=== PATIENT | male | born 1995 | race Caucasian/White ===

== ENCOUNTER 2020-09-19 12:32 | Emergency (ER) | payer OTHER, MEDICAID, SELFPAY ==
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
[2020-09-19 12:40] VITALS: BP 114/71; PULSE 79; RESP 18; TEMP 37.7; O2SAT 100
[2020-09-19 12:42] VITALS: TEMP 37.2
--- NOTE | 2020-09-19 12:44 | ECG_ITS ---
Measurements Intervals [place] Rate: 70 P: 60 IA: 136 QRS: 80 QRSD: 102 T: 64 QT: 369 QTc: 399 Interpretive Statements SINUS RHYTHM BORDERLINE T WAVE ABNORMALITY- ANTERIOR LEADS BORDERLINE ECG Electronically Signed On 09-19-2020 16:30:28 CDT by Marlon Warren D.O.
[2020-09-19 12:59] LABS: Glucose Point of Care 100 mg/dl (65-105)
[2020-09-19 13:00] VITALS: BP 112/64; PULSE 74
[2020-09-19 13:02] VITALS: BP 113/69; PULSE 85
[2020-09-19 13:04] VITALS: BP 118/61; PULSE 99
== END 2020-09-19 13:16 | disposition left against medical advice (07) ==
PROVIDERS: Emergency Provider Nurse Practitioner Family
DX: F41.9 Anxiety disorder, unspecified (principal); R94.31 Abnormal electrocardiogram [ECG] [EKG]
CPT/HCPCS: 82948; 93005; 99213; G0463

== ENCOUNTER 2020-10-13 18:20 | Emergency (ER) | payer OTHER, MEDICAID, SELFPAY ==
[2020-10-13 18:26] VITALS: BP 117/62; PULSE 92; RESP 18; TEMP 37.2; O2SAT 99
--- NOTE | 2020-10-13 18:42 | ED.SKABFB ---
HPI - Skin/Abscess/Foreign Bdy General Chief complaint: Wound/Laceration Stated complaint: right gardner infection Time Seen by Provider: 10/13/20 18:32 Source: patient and RN notes reviewed Mode of arrival: ambulatory Limitations: no limitations History of Present Illness HPI narrative: 24-year-old male presents with concern for red, swollen, tender area on his right lower leg. Reports noticing the symptoms several days ago. Reports an additional scabbed swollen spot on the right Achilles area. He denies known causes.. Denies fever, body aches, chills, sweats. Denies drainage from the area. Denies intervention. complaint: abscess/boil Related Data Allergies Allergy/AdvReac Type Severity Reaction Status Date / Time No Known Allergies Allergy Verified 10/13/20 18:38 Review of Systems Review of Systems: CONSTITUTIONAL: Denies malaise, chills, sweats, or fever. SKIN: Reports red swollen tender area on the front of the right leg, reports scabbed area on the right Achilles area MUSCULOSKELETAL: Denies myalgia. All systems reviewed & are unremarkable except as noted in HPI and below PMFSH Comments At time of signature, agree with nursing past medical, surgical, social and family history. There is no relevant family history pertinent to the presenting complaint Exam Narrative: GENERAL: Well-appearing, well-nourished, and in no acute distress. HEAD: Normocephalic EYES: PERRLA, conjunctivae clear ENT: Mucous membranes moist. NECK: Supple. CHEST: No respiratory distress. Speaks in full sentences. HEART: Regular rate and rhythm.es. EXTREMITIES: Grossly normal range of motion, grossly normal strength and sensation. SKIN: Warm, dry. Scabbed raised. Erythematous papule approximately 4 cm in diameter noted to the anterior right lower leg surrounded by approximately 20 cm of erythema and warmth. 2 cm diameter erythematous scabbed area noted to the right Achilles area NEURO: Alert and oriented x3. PSYCH: Normal mood and affect Course Course Emergency Course: Patient is aware of diagnosis, understands and agrees to treatment plan. Anticipatory guidance given. Patient agrees to follow-up as directed and is aware of reasons to seek care at the emergency department. Portions of this record may have been created with voice recognition software Vital Signs Vital signs: Vital Signs Temperature 98.9 F 10/13/20 18:26 Pulse Rate 92 10/13/20 18:26 Respiratory Rate 18 10/13/20 18:26 Blood Pressure 117/62 10/13/20 18:26 Pulse Oximetry 99 10/13/20 18:26 Temperature 98.9 F 10/13/20 18:26 Pulse Rate 92 10/13/20 18:26 Respiratory Rate 18 10/13/20 18:26 Blood Pressure 117/62 10/13/20 18:26 Pulse Oximetry 99 10/13/20 18:26 Reviewed. MDM - Skin/Abscess/Foreign Bdy MDM Narrative Medical decision making narrative: Exam findings show no acute concerns or changes; patient is non-toxic appearing and is in no distress. Patient is appropriate for outpatient treatment and follow-up. Differential Diagnosis Differential diagnosis: Likely abscess of skin or subcutaneous tissue, allergic reaction to drug, cellulitis, impetigo and contact dermatitis Critical Care Time Critical Care Time Critical Care Time: No Discharge Plan Discharge Clinical Impression: Cellulitis Qualifiers: Site of cellulitis: extremity Site of cellulitis of extremity: lower extremity Laterality: right Qualified Code(s): L03.115 - Cellulitis of right lower limb Patient Disposition: Home, Self-Care Condition: Stable Instructions: Antibiotic Form, Cellulitis (ED) Additional Instructions: Please follow up with your Primary Care Doctor within 48-72 hours - call for an appointment. Rest and elevate affected area; apply moist heat 3-4 times daily for 10-15 minutes. Take Motrin 600mg every 8 hours with food for pain. Please take Antibiotics as directed. If you experience any worsening redness, swelling, streaking (red lines), fever or
== END 2020-10-13 18:47 | disposition home or self-care (01) ==
PROVIDERS: Emergency Provider Nurse Practitioner
DX: L03.115 Cellulitis of right lower limb (principal)
CPT/HCPCS: 99213; G0463